=== PATIENT | female | born 1965 | race African-American/Black ===

== ENCOUNTER 2021-09-09 12:43 | Emergency (ER) | payer BC ==
[2021-09-09] MEDS ORDERED: predniSONE 20 MG TAB ONE (13:32)
[2021-09-09] MEDS ORDERED: Albuterol Sulfate 2.5 mg/3 ml Neb ONE ×3 (13:39→15:35)
[2021-09-09] MEDS ORDERED: Ipratropium Bromide 2.5 ml Neb ONE ×3 (13:40→15:35)
== END 2021-09-09 16:33 | disposition home or self-care (01) ==
LOC: CSHERS 12:43
DX: J98.01 Acute bronchospasm (principal)
CPT/HCPCS: 71045; J7512; J7611

== ENCOUNTER 2021-09-20 10:58 | Emergency (ER) | payer BC ==
[2021-09-20 12:11] LABS: #Eosinphils 0.5 10x3/uL (0.0-0.5); #Monocytes 0.6 10x3/uL (0.0-1.1); %Basophils 0.5 % (0.0-2.0); %Eosinophils 6.1 % (0.0-6.0); %Neutrophils 67.9 % (40.0-75.0); Hemoglobin 10.1 g/dL (12.0-15.5); Mean Corpuscular HGB CONC 30.4 g/dL (32.0-36.0); Mean Corpuscular Hemoglobin 25.9 pg (27.0-33.0); Mean Corpuscular Volume 85.1 fl (81.6-98.3); Mean Platelet Volume 9.7 fl (7.4-10.4); Platelet Count 302 10x3/uL (150-450); RBC Distribution Width 15.5 % (11.5-14.5); White Blood Cell (WBC) Count 8.8 10x3/uL (3.5-10.5)
[2021-09-20] MEDS ORDERED: Ventolin HFA Inhaler 60 PUFF INHALER ONE (12:15)
[2021-09-20 12:31] LABS: ALT (SGPT) 25 U/L (8-55); AST (SGOT) 19 U/L (5-34); Albumin 3.8 g/dL (3.5-5.0); Alkaline Phosphatase 105 U/L (40-110); Anion Gap 12 mmol/L (10-20); BUN (Urea Nitrogen) 12 mg/dL (9.8-20.1); Bilirubin, Total 0.5 mg/dL (0.2-1.2); Calc. Creatinine Clearance 0 mL/min (70-130); Calcium 9.2 mg/dL (7.8-10.44); Carbon Dioxide 27 mmol/L (22-29); Chloride 105 mmol/L (98-107); Globulin 3.4 g/dL (2.4-3.5); Glucose 96 mg/dL (70-105); Potassium 3.8 mmol/L (3.5-5.1); Protein, Total 7.2 g/dL (6.0-8.3); Sodium 140 mmol/L (136-145)
[2021-09-20] MEDS ORDERED: Acetaminophen 500 MG TAB ONE (12:32)
== END 2021-09-20 13:12 | disposition home or self-care (01) ==
LOC: CSHERS 10:58
DX: J06.9 Acute upper respiratory infection, unspecified (principal); U09.9 Post COVID-19 condition, unspecified; R06.2 Wheezing
CPT/HCPCS: 71045; 80053; 85025; J7620

== ENCOUNTER 2021-10-01 07:06 | Emergency (ER) | payer BC ==
[2021-10-01] MEDS ORDERED: methylPREDNISolone Sod Succ/PF 125 MG/2 ML VIAL ONE (08:24)
[2021-10-01] MEDS ORDERED: Acetaminophen/Codeine 30-300mg Tablet ONE (08:25)
[2021-10-01] MEDS ORDERED: Ventolin HFA Inhaler 60 PUFF INHALER ONE (08:25)
[2021-10-01] MEDS ORDERED: Ketorolac Tromethamine 30 MG/ML VIAL IVP SCH (08:45)
[2021-10-01 09:12] LABS: #Basophils 0.1 10x3/uL (0.0-0.2); #Eosinphils 1.5 10x3/uL (0.0-0.5); #Monocytes 0.5 10x3/uL (0.0-1.1); #Neutrophils 4.9 10x3/uL (1.5-8.4); %Basophils 0.6 % (0.0-2.0); %Eosinophils 18.2 % (0.0-6.0); %Monocytes 6.1 % (0.0-10.0); %Neutrophils 58.9 % (40.0-75.0); Hemoglobin 11.2 g/dL (12.0-15.5); Mean Corpuscular HGB CONC 30.2 g/dL (32.0-36.0); Mean Corpuscular Hemoglobin 25.6 pg (27.0-33.0); Mean Corpuscular Volume 84.7 fl (81.6-98.3); Mean Platelet Volume 10.2 fl (7.4-10.4); Platelet Count 359 10x3/uL (150-450); RBC Distribution Width 15.5 % (11.5-14.5); Red Blood Cell (RBC) Count 4.38 10x6/uL (3.90-5.03); White Blood Cell (WBC) Count 8.4 10x3/uL (3.5-10.5)
[2021-10-01 09:17] LABS: Bilirubin Neg (Negative); Blood, Urine Negative (Negative); Clarity Clear (Clear); Glucose, Urine (Dipstick) Normal (Negative); Ketone, Urine Negative (Negative); Leukocyte Negative (Negative); Nitrite Negative (Negative); Protein, Urine (Dipstick) Negative (Neg-Trace); Specific Gravity, Urine 1.005 (1.002-1.036); Urobilinogen Normal mg/dL (Less than 2)
[2021-10-01 09:27] LABS: BHCG - Serum Negative (NEGATIVE); Pregs Control Background? CLEAR/WHITE (CLR/WHITE); Pregs Control Bar Appear? YES (CONTROL BAR)
[2021-10-01 09:35] LABS: ALT (SGPT) 18 U/L (8-55); AST (SGOT) 18 U/L (5-34); Albumin 4.1 g/dL (3.5-5.0); Alkaline Phosphatase 107 U/L (40-110); Anion Gap 13 mmol/L (10-20); BUN (Urea Nitrogen) 12 mg/dL (9.8-20.1); Bilirubin, Total 0.3 mg/dL (0.2-1.2); CK (CPK) 87 U/L (29-168); Calc. Creatinine Clearance 0 mL/min (70-130); Calcium 9.5 mg/dL (7.8-10.44); Carbon Dioxide 26 mmol/L (22-29); Chloride 103 mmol/L (98-107); Globulin 3.8 g/dL (2.4-3.5); Glucose 111 mg/dL (70-105); Potassium 3.9 mmol/L (3.5-5.1); Protein, Total 7.9 g/dL (6.0-8.3); Sodium 138 mmol/L (136-145)
== END 2021-10-01 11:15 | disposition home or self-care (01) ==
LOC: CSHERS 07:06
DX: R06.2 Wheezing (principal); U09.9 Post COVID-19 condition, unspecified; J18.9 Pneumonia, unspecified organism
CPT/HCPCS: 36415; 71045; 71275; 80053; 81003; 82550; 83880; 84484; 84703; 85025; 87040; 87086; 93005; 94760; 96374; 96375; J1885; J2930

== ENCOUNTER 2021-12-11 15:16 | Outpatient (CLI) | payer BC | END 2021-12-11 15:17 | disposition home or self-care (01) | LOC: CSHMAMMO 15:16 | PROVIDERS: ATTEND Family Medicine | DX: Z12.31 Encounter for screening mammogram for malignant neoplasm of breast (principal); Z80.3 Family history of malignant neoplasm of breast; Z98.82 Breast implant status | CPT/HCPCS: 77063; 77067 ==